=== PATIENT | female | born 1965 | race African-American/Black ===

== ENCOUNTER 2018-04-03 22:56 | Emergency (ER) | payer OTHER, BC ==
[~2018-04-03] VITALS: Ht 172.7 cm; Wt 98.2 kg
[2018-04-04] MEDS ORDERED: MOTRIN800 MG PO (03:32)
[2018-04-04] MEDS ORDERED: LIDOCAINE700 MG TP (03:32)
[2018-04-04] MEDS ORDERED: TYLENOL WITH C1 EACH PO (03:32)
[2018-04-04 03:53] VITALS: BP 119/80
== END 2018-04-04 03:55 | disposition home or self-care (01) ==
LOC: EME 22:56
DX: M62.830 Muscle spasm of back (principal); M54.6 Pain in thoracic spine; X50.9XXA Other and unspecified overexertion or strenuous movements or postures, initial encounter; Y99.0 Civilian activity done for income or pay
CPT/HCPCS: 71046; 99281; 99283